=== PATIENT | male | born 1935 | race Caucasian/White ===

== ENCOUNTER 2018-11-26 12:55 | Day surgery (SDC) | payer MEDICARE, BC ==
[2018-11-26] MEDS ORDERED: FENTANYL 100MCG/2ML SOL ONE (13:02)
[2018-11-26] MEDS ORDERED: MIDAZOLAM 2 MG/2 ML SOL ONE (13:02)
[2018-11-26] MEDS: TROPICAMIDE 1% OPHTH SOL ONE ×3 (13:17→13:23)
[2018-11-26] MEDS: PHENYLEPHRINE HCL 10% OPHTHAL SOL ONE ×3 (13:17→13:23)
[2018-11-26] MEDS: CYCLOPENTOLATE 1% SOL ONE ×3 (13:17→13:23)
[2018-11-26] MEDS ORDERED: MOXIFLOXACIN-HOME SOL RIGHTEYE ONE ×2 (13:18→13:21)
[2018-11-26] MEDS ORDERED: KETOROLAC/HOME 0.5% SOL RIGHTEYE ONE ×3 (13:18→13:24)
[2018-11-26] MEDS: TETRACAINE HCL 0.5 % 1 DROP SOL ONE ×2 (13:24→14:25)
[2018-11-26] MEDS ORDERED: BSS W/ 0.5 MG P.F. EPI 1 BOTTLE ONE (14:21)
[2018-11-26] MEDS ORDERED: POVIDONE IODINE 5% SOL ONE (14:21)
[2018-11-26] MEDS: LIDOCAINE HCL 2% MPF 10 ML SOL ONE ×2 (14:25→14:30)
[2018-11-26 14:59] VITALS: RESP 20; TEMP 97.4; O2SAT 95
[2018-11-26] MEDS ORDERED: ACETAZOLAMIDE 500 MG CER PO ONE (15:10)
[2018-11-26 15:14] VITALS: BP 168/97; PULSE 52
== END 2018-11-26 15:15 | disposition home or self-care (01) | DRG 125 ==
LOC: SURG 12:55
PROVIDERS: ATTEND Ophthalmology
DX: H25.89 Other age-related cataract (principal); E11.9 Type 2 diabetes mellitus without complications
CPT/HCPCS: J2250; J3010; A9270-GY

== ENCOUNTER 2018-12-10 10:28 | Day surgery (SDC) | payer MEDICARE, BC ==
[2018-11-26 14:59] VITALS: O2SAT 95
[2018-12-10] MEDS ORDERED: ACETAZOLAMIDE 250 MG PO ONE (10:33)
[2018-12-10] MEDS ORDERED: TETRACAINE HCL 1% SOL ONE (10:34)
[2018-12-10 10:47] VITALS: TEMP 97.6
[2018-12-10] MEDS: TROPICAMIDE 1% OPHTH SOL ONE ×3 (10:47→10:55)
[2018-12-10] MEDS ORDERED: KETOROLAC/HOME 0.5% SOL LEFTEYE ONE (10:47)
[2018-12-10] MEDS: PHENYLEPHRINE HCL 10% OPHTHAL SOL ONE ×3 (10:47→10:54)
[2018-12-10] MEDS ORDERED: MOXIFLOXACIN-HOME SOL LEFTEYE ONE ×2 (10:47→10:51)
[2018-12-10] MEDS: CYCLOPENTOLATE 1% SOL ONE ×3 (10:47→10:54)
[2018-12-10] MEDS: KETOROLAC/HOME 0.5% SOL LEFTEYE ONE ×2 (10:51→10:55)
[2018-12-10] MEDS: TETRACAINE HCL 0.5 % OPHTH 1 DROP SOL ONE ×2 (10:55→12:08)
[2018-12-10] MEDS ORDERED: FENTANYL 100MCG/2ML SOL ONE (11:49)
[2018-12-10] MEDS ORDERED: MIDAZOLAM 2 MG/2 ML SOL ONE (11:49)
[2018-12-10] MEDS ORDERED: LIDOCAINE HCL 2% MPF 10 ML SOL ONE (12:01)
[2018-12-10] MEDS ORDERED: POVIDONE IODINE 5% SOL ONE (12:01)
[2018-12-10] MEDS ORDERED: BSS W/ 0.5 MG P.F. EPI 1 BOTTLE ONE (12:01)
[2018-12-10 12:34] VITALS: BP 155/81; PULSE 22; RESP 16
== END 2018-12-10 12:50 | disposition home or self-care (01) | DRG 125 ==
LOC: SURG 10:28
PROVIDERS: ATTEND Ophthalmology
DX: H25.89 Other age-related cataract (principal); E11.9 Type 2 diabetes mellitus without complications
CPT/HCPCS: J2250; J3010; A9270-GY